=== PATIENT | female | born 1960 | race Caucasian/White ===

== ENCOUNTER 2018-05-30 18:55 | Emergency (ER) | payer MEDICAID ==
[2018-05-30] MEDS ORDERED: MORPHINE SULFATE 10 MG/ML INJ IV PRN (19:42)
[2018-05-30] MEDS ORDERED: KETOROLAC TROMETHAMINE INJ/PF 30 MG/1 ML SDV IV ONE ×2 (19:42→22:14)
[2018-05-30] MEDS ORDERED: ONDANSETRON HCL INJ/PF 4 MG/2 ML SDV IV ONE (19:42)
--- NOTE | 2018-05-30 20:04 | RADIOLOGY REPORT (SQ) ---
EXAM DESCRIPTION: XR WRIST 3 OR MORE VIEWS BILATERAL COMPLETED DATE/TME: 05/30/2018 00:00 CLINICAL HISTORY: 58 years ,Female Fall COMPARISON: None. TECHNIQUE: RIGHT wrist, Three view FINDINGS: There is a comminuted impacted and dorsally displaced fracture of the distal radius. Tiny area of fragmentation is seen adjacent to the ulnar styloid which may reflect an acute ulnar styloid fracture. There is associated soft tissue swelling. IMPRESSION: Impacted and dorsally displaced fracture of the distal radial metaphysis Tiny ulnar styloid fracture
[2018-05-30] MEDS ORDERED: PROPOFOL INJ 200 MG/20 ML VIAL IV ONE ×3 (20:59→22:14)
[2018-05-30] MEDS ORDERED: KETAMINE HCL INJ 500 MG/10 ML VIAL ONE (21:14)
--- NOTE | 2018-05-30 22:05 | RADIOLOGY REPORT (SQ) ---
EXAM DESCRIPTION: [facility]: XR ELBOW 1-2 VIEWS Views: 2 CLINICAL HISTORY: 58 years Female, FALL COMPARISON: None. FINDINGS: A splint is in place, obscuring bony detail. Alignment of the elbow is anatomic. Cannot evaluate for joint effusion or nondisplaced fracture. IMPRESSION: 1. Anatomic alignment. Splint in place.
--- NOTE | 2018-05-30 22:06 | RADIOLOGY REPORT (SQ) ---
EXAM DESCRIPTION: XR WRIST 1-2 VIEWS COMPLETED DATE/TME: 05/30/2018 21:05 CLINICAL HISTORY: 58 years, Female, post reduction COMPARISON: Prior right wrist from today's date NUMBER OF VIEWS: 2 TECHNIQUE: 2 view right wrist LIMITATIONS: None. FINDINGS: Overlying cast material obscures bony detail. Slight improved alignment of the previously described comminuted distal radial metaphyseal fracture. Mildly displaced ulnar styloid fracture again noted. IMPRESSION: Slight improved alignment of the previously described distal radial fracture. copyright 2010 [employer]- All Rights Reserved
[2018-05-30] MEDS ORDERED: HYDROCODONE/ACETAMINOPHEN 5-325 MG (6 TAB/ER DISP) PO PRN (22:15)
[2018-05-30] MEDS ORDERED: KETAMINE HCL INJ 500 MG/10 ML VIAL IV ONE (22:15)
--- NOTE | 2018-05-30 22:17 | ER Document Report ---
ED General - General Chief Complaint: Wrist Injury Stated Complaint: FALL,WRIST INJURY Time Seen by Provider: 05/30/18 19:30 Primary Care Provider: DAMIAN CREWS DO [ACTIVE STAFF] - Follow up tomorrow Notes: Patient is a 58-year-old female without chronic medical problems who presents after a fall on outstretched right hand while skating. States she landed on the wrist, immediately began having severe, throbbing, constant pain. States that since that time any movement of the wrist worsens the pain. Nothing improves the pain. She is right-hand dominant. Denies any history of similar injuries. Your on vacation with her family. She denies any head or neck injury. Denies any injury to any other location. TRAVEL OUTSIDE OF THE [place] IN LAST 30 DAYS: No - Related Data Allergies/Adverse Reactions: No Known Allergies Allergy (Unverified 05/30/18 21:44) Past Medical History - General Information source: Patient - Social History Smoking Status: Never Smoker Chew tobacco use (# tins/day): No Frequency of alcohol use: None Drug Abuse: Marijuana Lives with: Spouse/Significant other Family History: Reviewed & Not Pertinent Patient has suicidal ideation: No Patient has homicidal ideation: No Renal/ Medical History: Denies: Hx Peritoneal Dialysis Review of Systems - Review of Systems Notes: Constitutional: Negative for fever. Eyes: Negative for visual changes. ENT: Negative for facial injury Cardiovascular: Negative for chest injury. Respiratory: Negative for shortness of breath. Gastrointestinal: Negative for abdominal injury. Genitourinary: Negative for genital injury Musculoskeletal: Positive for right wrist injury Skin: Negative for laceration/abrasions. Neurological: Negative for head injury. Physical Exam - Vital signs Vitals: Temp Pulse Resp BP Pulse Ox 97.9 F 72 16 120/87 H 99 05/30/18 19:14 05/30/18 19:14 05/30/18 19:14 05/30/18 19:14 05/30/18 19:14 Interpretation: Normal Notes: PHYSICAL EXAMINATION: GENERAL: Appears to be in pain, crying intermittently. HEAD: Atraumatic, normocephalic. EYES: Pupils equal round and reactive to light, extraocular movements intact, sclera anicteric, conjunctiva are normal. ENT: nares patent, no oral pharyngeal trauma. No hemotympanum, no Taylor's sig n, no raccoon eyes. NECK: No midline cervical spine tenderness. Patient able to move their head to 45 bilaterally without any discomfort. LUNGS: Breath sounds clear to auscultation bilaterally and equal. No wheezes rales or rhonchi. HEART: Regular rate and rhythm without murmurs. 2+ radial pulses bilaterally, capillary refill less than 1 second in all digits of the right hand CHEST WALL: No ecchymosis over the chest wall. ABDOMEN: Soft, nontender, normoactive bowel sounds. No guarding, no rebound. No abdominal bruising EXTREMITIES: Obvious deformity of the right wrist. No other notable extremity finding BACK: No midline spinal tenderness, step-offs, or deformities. NEUROLOGICAL: Moves all extremities spontaneously on command. RMU motor and sensory distribution is intact bilaterally PSYCH: Normal mood, normal affect. SKIN: Warm, Dry, normal turgor, no rashes or lesions noted. Course - Re-evaluation Re-evalutation: 05/30/18 22:25 Patient presents with a fall on outstretched right hand found to have a distal radius comminuted, displaced fracture with an ulnar styloid fracture. Also complaining of some mild lateral elbow pain with possible associated nondisplaced radial head fracture or olecranon fracture based on elbow ultrasound obtained after splint had been placed as the patient did not began complaining of pain to this area and did not have any visible trauma to the area until after splint placement. The arthritic surgeon on-call Dr. Crews was contacted, request for follow-up made and he will see her tomorrow at noon. She is neurovascular intact. She underwent reduction with some improvement of the degree of displacement however it was a very difficult reduction to maintain giv en the degree of comminution. Patient remained neurovascular intact after reduction. No additional injuries on exam. At this time will discharge with return precautions and follow-up recommendations. Verbal discharge instructions given a the bedside and opportunity for questions given. Medication warnings reviewed. Patient is in agreement with this plan and has verbalized understanding of return precautions and the need for orthopedic follow-up tomorrow at noon with Dr. Crews - Vital Signs Vital signs: Temp Pulse Resp BP Pulse Ox 97.9 F 97 16 131/93 H 98 05/30/18 19:14 05/30/18 22:35 05/30/18 22:51 05/30/18 22:51 05/30/18 22:51 - Diagnostic Test Radiology reviewed: Image reviewed, Reports reviewed Radiology results interpreted by me: 05/31/18 04:08 Right wrist x-ray 1: Comminuted, displaced distal radius fracture, small ulnar styloid fracture Right wrist x-ray two-point mildly improved displacement of right distal radius fracture with comminution. Right elbow x-ray: Possible fracture of the radial head although could alternatively be casting supply. Procedures - Conscious Sedation Conscious sedation Time started: 21:10 Time completed: 21:30 Consent obtained: Yes Normal healthy pt.: P1. - ASA Classification Airway Evaluation: Normal anatomy Mallampati Classification: Class 1 Used during procedure: Suction available, IV access obtained, Pulse ox on pt., monitor technician on pt. Medications administered: Diprivan Reversal agents: None I personally performed/intraservice time: Sedation, Procedure, 30 min or less Complications: No - Immobilization Right Wrist Pre-Proc Neuro Vasc Exam: Normal Immobilizer type: Sugar tong Performed by: Provider assisted Post-Proc Neuro Vasc Exam: Normal Alignment checked and good: Yes - Joint Reduction/Fracture Care Right Wrist Time completed: 21:30 Consent obtained: Yes Conscious sedation: Yes Pre-procedure NV exam: Yes Fracture: Closed Manipulation comment: Hyperextension, direct traction Post-procedure NV exam: Yes Post-reduction x-ray: Joint reduced Reduction attempts: 2 Complications: No Discharge - Discharge Clinical Impression: Fracture of right distal radius Qualifiers: Encounter type: initial encounter Fracture type: closed Fracture morphology: unspecified fracture morphology Qualified Code(s): S52.501A - Unspecified fracture of the lower end of right radius, initial encounter for closed fracture Injury of right elbow Qualifiers: Encounter type: initial encounter Qualified Code(s): S59.901A - Unspecified injury of right elbow, initial encounter Condition: Fair Disposition: HOME, SELF-CARE Additional Instructions: You have a fracture of your distal radius and ulna which are up to of the bones in your wrist. The fracture of your radius is severe and will very likely require surgery. You need to follow-up with orthopedic surgery within the next 24-48 hours. Your elbow may also have a small fracture and has also been placed in a splint. Please stay in the splint until your seen and evaluated by orthopedic surgery. For pain take 600 mg of ibuprofen and 650 mg of Tylenol every 6 hours but together. If this does not work for controlling your pain you may take 1 of the [place] tablets with which you was sent home. Please return to the emergency department if you notice discoloration of your hand, become unable to feel your fingers, have uncontrolled pain, or any other symptoms that are worrisome to you Referrals: DAMIAN CREWS, [ACTIVE STAFF] - Follow up tomorrow
[2018-05-30 22:58] VITALS: BP 131/93
== END 2018-05-30 22:57 | disposition home or self-care (01) ==
LOC: ER 18:55
PROC: 2W3CX1Z Immobilization of Right Lower Arm using Splint (ICD-10-PCS; principal; 2018-05-30)
DX: S52.501A Unspecified fracture of the lower end of right radius, initial encounter for closed fracture (principal); S59.901A Unspecified injury of right elbow, initial encounter; W18.30XA Fall on same level, unspecified, initial encounter; Y93.21 Activity, ice skating
CPT/HCPCS: 96376; 99283; 99152; 96374; 96375; 73070; 73100; 73110; 29125; J3490; J1885; J2270; J2405; J2704

== ENCOUNTER 2018-05-31 13:36 | Emergency (ER) | payer MEDICAID ==
[2018-05-31 13:44] VITALS: BP 128/77
--- NOTE | 2018-05-31 14:08 | ER Document Report ---
ED Extremity Problem, Upper - General Chief Complaint: Arm Injury Stated Complaint: RIGHT ARM PAIN Time Seen by Provider: 05/31/18 13:51 Primary Care Provider: [facility] [Provider Group] - Follow up as needed Mode of Arrival: Wheelchair Information source: Patient, Relative Notes: 58-year-old female presented to ED for continued pain to right wrist and elbow. She was seen yesterday and diagnosed with a comminuted fracture of the distal fracture and a tiny fragment on the ulnar styloid. This was reduced yesterday and splinted. She also has a probable fracture of the elbow and that was also treated yesterday. She states she went to the orthopedics today as instructed and they told her they could not see her because she had [place] insurance. The family called the insurance and they said they would not preauthorize a visit with the orthopedics. Patient was given a larger ring so she was more comfortable and discharged home. She does state that she has narcotics to take but she will not be going home for a week. Son states he will be going to [place] to see if they will have an orthopedic see her at the hospital. TRAVEL OUTSIDE OF THE [place] IN LAST 30 DAYS: No - HPI Patient complains to provider of: Right, Elbow, Wrist Onset: Yesterday Recent injury: Yes Quality of pain: Sharp, Throbbing Severity of pain: Moderate Pain Level: 4 Context: Fall Associated symptoms: None Exacerbated by: Movement, Exertion Relieved by: Rest Similar symptoms previously: Yes Recently seen / treated by doctor: Yes - Related Data Allergies/Adverse Reactions: No Known Allergies Allergy (Verified 05/31/18 13:37) Past Medical History - General Information source: Patient - Social History Smoking Status: Never Smoker Frequency of alcohol use: None Drug Abuse: Marijuana Lives with: Family - Visiting her son in [place] she lives in [place] Family History: Reviewed & Not Pertinent Patient has suicidal ideation: No Patient has homicidal ideation: No - Past Medical History Cardiac Medical History: Reports: None Pulmonary Medical History: Reports: None EENT Medical History: Reports: None Neurological Medical History: Reports: None Endocrine Medical History: Reports: None Renal/ Medical History: Reports: None Malignancy Medical History: Reports: None GI Medical History: Reports: None Musculoskeletal Medical History: Reports Hx Musculoskeletal Deformity, Reports Hx Musculoskeletal Trauma Skin Medical History: Reports None Psychiatric Medical History: Reports: Hx Depression Traumatic Medical History: Reports: Hx Fractures - Right wrist Infectious Medical History: Reports: None Past Surgical History: Reports: Hx Section, Hx Cholecystectomy Review of Systems - Review of Systems Constitutional: No symptoms reported EENT: No symptoms reported Cardiovascular: No symptoms reported Respiratory: No symptoms reported Gastrointestinal: No symptoms reported Genitourinary: No symptoms reported Female Genitourinary: No symptoms reported Musculoskeletal: Joint pain - Right wrist and elbow Skin: No symptoms reported Hematologic/Lymphatic: No symptoms reported Neurological/Psychological: No symptoms reported -: Yes All other systems reviewed and negative Physical Exam - Vital signs Vitals: Temp Pulse Resp BP Pulse Ox 98.4 F 68 16 128/77 H 99 05/31/18 13:42 05/31/18 13:42 05/31/18 13:42 05/31/18 13:42 05/31/18 13:42 Interpretation: Normal - General General appearance: Appears well, Alert - HEENT Head: Normocephalic, Atraumatic Eyes: Normal Pupils: PERRL - Respiratory Respiratory status: No respiratory distress Chest status: Nontender Breath sounds: Normal Chest palpation: Normal - Cardiovascular Rhythm: Regular Heart sounds: Normal auscultation Murmur: No - Abdominal Inspection: Normal Distension: No distension Bowel sounds: Normal Tenderness: Nontender Organomegaly: No organomegaly - Back Back: Normal, Nontender - Extremities General upper extremity: Normal color, Normal temperature General lower extremity: Normal inspection, Nontender, Normal color, Normal ROM, Normal temperature, Normal weight bearing. No: Devin's sign Elbow: Tender, Limited ROM, Other - splint in place to the right wrist and elbow. Sling that was on her was too small and it was replaced Wrist: Tender, Limited ROM Hand: Tender - Neurological Neuro grossly intact: Yes Cognition: Normal Orientation: AAOx4 [place] Coma Scale Eye Opening: Spontaneous Evangelina Coma Scale Verbal: Oriented Evangelina Coma Scale Motor: Obeys Commands Evangelina Coma Scale Total: 15 Speech: Normal Motor strength normal: LUE, RUE, LLE, RLE Sensory: Normal - Psychological Associated symptoms: Normal affect, Normal mood - Skin Skin Temperature: Warm Skin Moisture: Dry Skin Color: Normal Course - Re-evaluation Re-evalutation: 05/31/18 15:[address] Gu the orthopedic horizontal resaw operator today. He states that the patient came there they called the insurance and the insurance refused to give an authorization for visit. The patient was seen yesterday in the emergency room her fracture was reduced and she was placed in a splint. She was discharged home with ibuprofen and [place]. Patient states she is taking the medication but she is continuing to have pain. I explained to the patient and family that the front desk specialist said that if they could get a authorization from the insurance company he would see her. Son stated he called the insurance company and they refused to give an authorization number. Patient and son were informed they would need to follow-up with her doctor in [place] and probably go home sooner than planned. Son said that they were going to another hospital where they could get treatment from an orthopedic now. - Vital Signs Vital signs: Temp Pulse Resp BP Pulse Ox 98.4 F 68 16 128/77 H 99 05/31/18 13:42 05/31/18 13:42 05/31/18 13:42 05/31/18 13:42 05/31/18 13:42 Discharge - Discharge Clinical Impression: Fracture of right distal radius Qualifiers: Encounter type: subsequent encounter Fracture type: closed Fracture morphology: unspecified fracture morphology Fracture healing: with nonunion Qualified Code(s): S52.501K - Unspecified fracture of the lower end of right radius, subsequent encounter for closed fracture with nonunion Injury of right elbow Qualifiers: Encounter type: subsequent encounter Qualified Code(s): S59.901D - Unspecified injury of right elbow, subsequent encounter Condition: Stable Disposition: HOME, SELF-CARE Additional Instructions: You have a fracture of the distal radius and ulna which is up to the bones in your wrist. The fracture in your radius is severe and will probably require surgery. You have tried to follow-up with the orthopedic and they would not see you today. I have tried to get your insurance company to give a authorization so that I can send you back to the front desk specialist. They have refused. The other option is for you to return to [place] to have your local provider see you. You have been given instructions for elevation ice and a prescription for narcotics for your pain. Please follow-up with orthopedics as instructed. Forms: Elevated Blood Pressure Referrals: [facility] [Provider Group] - Follow up as needed
== END 2018-05-31 14:20 | disposition home or self-care (01) ==
LOC: ER 13:36
DX: S52.501K Unspecified fracture of the lower end of right radius, subsequent encounter for closed fracture with nonunion (principal); S59.901D Unspecified injury of right elbow, subsequent encounter; W19.XXXD Unspecified fall, subsequent encounter; Z98.890 Other specified postprocedural states
CPT/HCPCS: 99283